=== PATIENT | female | born 2000 | race Caucasian/White ===

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

== ENCOUNTER 2021-02-03 02:16 | Inpatient (IN) | payer MEDICAID ==
[2021-02-03] MEDS ORDERED: Misoprostol 200 MCG Tab PO PRN (03:39)
[2021-02-03] MEDS ORDERED: Sodium Chloride 0.9% 2.5 ML Syringe FLUSH PRN (03:39)
[2021-02-03] MEDS ORDERED: Sodium Chloride 0.9% 10 ML SDV IV PRN (03:39)
[2021-02-03] MEDS ORDERED: Butorphanol 1 MG/ML SDV IVPUSH PRN (03:39)
[2021-02-03] MEDS ORDERED: Methylergonovine 0.2 MG/1 ML Amp IM PRN (03:39)
[2021-02-03] MEDS ORDERED: Nalbuphine 10 MG/1 ML Vial IVPUSH PRN (03:39)
[2021-02-03] MEDS ORDERED: Ondansetron 4 MG/2 ML SDV IVPUSH PRN (03:39)
[2021-02-03] MEDS ORDERED: Carboprost Tromethamine 250 MCG/1 ML Amp IM PRN (03:39)
[2021-02-03] MEDS ORDERED: Lidocaine 1% 50 ML MDV INJECT PRN (03:39)
[2021-02-03] MEDS ORDERED: Tranexamic Acid 1,000 MG in Sodium Chloride 0.9% 100 ML IV PRN (03:39)
[2021-02-03] MEDS ORDERED: Sodium Chloride 0.9% 10 ML Syringe FLUSH PRN (03:39)
[2021-02-03] MEDS ORDERED: Water For Irrigation,Sterile 1,000 ML Container IRR PRN (03:39)
[2021-02-03] MEDS ORDERED: Oxytocin/0.9 % Sodium Chloride 30 UNIT/500 ML BAG IV SCH ×2 (03:45→08:00)
[2021-02-03] MEDS ORDERED: Terbutaline 1 MG/ML SDV SUBCUT PRN (07:58)
[2021-02-03] MEDS: Lactated Ringers 1,000 ML IV SCH ×3 (08:52→13:14)
[2021-02-03] MEDS ORDERED: Ropivacaine HCl/PF 200 ML ONE (11:31)
[2021-02-03] MEDS ORDERED: Bupivacaine 0.25% 10 ML SDV ONE (11:31)
--- NOTE | 2021-02-03 11:55 | PCM.PREANE ---
Preanesthetic Assessment - Anesthesia/Transfusion/Family Hx Anesthesia History: Prior Anesthesia Without Reaction Family History of Anesthesia Reaction: No Transfusion History: No Prior Transfusion(s) - Review of Systems General: No Symptoms Pulmonary: No Symptoms Cardiovascular: No Symptoms Gastrointestinal: No Symptoms Neurological: No Symptoms Other: Reports: None - Physical Assessment NPO Status Date: 02/03/21 NPO Status Time: 00:00 Height: 5 ft 6 in Weight: 247 lb ASA Class: 2 Mental Status: Alert & Oriented x3 Airway Class: Mallampati = 2 Dentition: Reports: Normal Dentition ROM/Head Extension: Full Lungs: Clear to Auscultation, Normal Respiratory Effort Cardiovascular: Regular Rate, Regular Rhythm - Lab Values: Laboratory Last Values WBC 11.27 K/uL (4.0-11.0) H 02/03/21 03:55 RBC 3.25 M/uL (4.30-5.90) L 02/03/21 03:55 Hgb 10.6 g/dL (12.0-16.0) L 02/03/21 03:55 Hct 30.0 % (36.0-46.0) L 02/03/21 03:55 MCV 92.3 fL (80.0-98.0) 02/03/21 03:55 MCH 32.6 pg (27.0-32.0) H 02/03/21 03:55 MCHC 35.3 g/dL (31.0-37.0) 02/03/21 03:55 RDW Std Deviation 42.0 fl (28.0-62.0) 02/03/21 03:55 RDW Coeff of Veronica 13 % (11.0-15.0) 02/03/21 03:55 Plt Count 250 K/uL (150-400) 02/03/21 03:55 MPV 11.20 fL (7.40-12.00) 02/03/21 03:55 SARS-CoV-2 RNA (PETR) NEGATIVE (NEGATIVE) 02/03/21 03:59 Blood Type A POSITIVE 02/03/21 03:55 Antibody Screen NEGATIVE 02/03/21 03:55 - Allergies Allergies/Adverse Reactions: Allergies Allergy/AdvReac Type Severity Reaction Status Date / Time lamotrigine [From Lamictal] Allergy Intermediate Rash Verified 01/01/21 18:32 - Blood Blood Available: Yes Product(s) Available: PRBC - Anesthesia Plan Pre-Op Medication Ordered: None - Acknowledgements Anesthesia Type Planned: Epidural Pt an Appropriate Candidate for the Planned Anesthesia: Yes Alternatives and Risks of Anesthesia Discussed w Pt/Guardian: Yes Pt/Guardian Understands and Agrees with Anesthesia Plan: Yes PreAnesthesia Questionnaire - Past Health History Medical/Surgical History: Denies Medical/Surgical History HEENT History: Reports: Impaired Vision Cardiovascular History: Reports: None Respiratory History: Reports: Asthma Gastrointestinal History: Reports: Cholelithiasis Genitourinary History: Reports: None 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: Musculoskeletal History: Reports: None Neurological History: Reports: None Psychiatric History: Reports: Anxiety, Depression, PTSD Endocrine/Metabolic History: Reports: Obesity/BMI 30+ Hematologic History: Reports: None Immunologic History: Reports: None Oncologic (Cancer) History: Reports: None Dermatologic History: Reports: None - Infectious Disease History Infectious Disease History: Reports: None - Past Surgical History HEENT Surgical History: Reports: Adenoidectomy, Oral Surgery, Tonsillectomy Respiratory Surgical History: Reports: None GI Surgical History: Reports: None Endocrine Surgical History: Reports: None - SUBSTANCE USE Tobacco Use Status *Q: Former Tobacco User Tobacco Use Within Last Twelve Months: Cigarettes Recreational Drug Use History: Yes Recreational Drug Type: Reports: Marijuana/Hashish Recreational Drug Last Use: 09/2020 - HOME MEDS Home Medications: Home Meds . [No Known Home Meds] 01/01/21 [History] - CURRENT (IN HOUSE) MEDS Current Meds: Current Medications Butorphanol Tartrate (Butorphanol 1 Mg/Ml Sdv) 1 mg IVPUSH Q1H PRN PRN Reason: Pain (severe 7-10) Last Admin: 02/03/21 06:35 Dose: 1 mg Documented by: Carboprost Tromethamine (Carboprost Tromethamine 250 Mcg/1 Ml Amp) 250 mcg IM ASDIRECTED PRN PRN Reason: Post Hemorrhage Lactated Ringer's (Ringers, Lactated) 1,000 mls @ 150 mls/hr IV ASDIRECTED DAREN Last Infusion: 02/03/21 11:51 Dose: 150 mls/hr Documented by: Oxytocin/Sodium Chloride (Oxytocin 30 Unit/500 Ml-Ns) 30 unit in 500 mls @ 999 mls/hr IV TITRATE DAREN Tranexamic Acid 1,000 mg/ (Sodium Chloride) 110 mls @ 660 mls/hr IV ONETIME PRN PRN Reason: Bleeding Oxytocin/Sodium Chloride (Oxytocin 30 Unit/500 Ml-Ns) 30 unit in 500 mls @ 2 mls/hr IV TITRATE DAREN; Protocol Last Titration: 02/03/21 11:52 Dose: 8 munits/min, 8 mls/hr Documented by: Lidocaine HCl (Lidocaine 1% 50 Ml Mdv) 50 ml INJECT ONETIME PRN PRN Reason: Laceration repair Methylergonovine Maleate (Methylergonovine 0.2 Mg/1 Ml Amp) 0.2 mg IM ASDIRECTED PRN PRN Reason: Post Hemorrhage Misoprostol (Misoprostol 200 Mcg Tab) 200 mcg PO ONETIME PRN PRN Reason: Post Hemorrhage Nalbuphine HCl (Nalbuphine 10 Mg/1 Ml Vial) 10 mg IVPUSH Q1H PRN PRN Reason: Pain (severe 7-10) Ondansetron HCl (Ondansetron 4 Mg/2 Ml Sdv) 4 mg IVPUSH Q6H PRN PRN Reason: Nausea/Vomiting Sodium Chloride (Sodium Chloride 0.9% 10 Ml Syringe) 10 ml FLUSH ASDIRECTED PRN PRN Reason: Keep Vein Open Sodium Chloride (Sodium Chloride 0.9% 2.5 Ml Syringe) 2.5 ml FLUSH ASDIRECTED PRN PRN Reason: Keep Vein Open Sodium Chloride (Sodium Chloride 0.9% 10 Ml Sdv) 10 ml IV ASDIRECTED PRN PRN Reason: IV Use Sterile Water (Water For Irrigation,Sterile 1,000 Ml Container) 1,000 ml IRR ASDIRECTED PRN PRN Reason: delivery Terbutaline Sulfate (Terbutaline 1 Mg/Ml Sdv) 0.25 mg SUBCUT ASDIRECTED PRN PRN Reason: Tacysystole Discontinued Medications Bupivacaine HCl (Bupivacaine 0.25% 10 Ml Sdv) Confirm Administered Dose 10 ml .ROUTE .STK-MED ONE Stop: 02/03/21 11:32 Ropivacaine (Naropin 0.2%) Confirm Administered Dose 200 mls @ as directed .ROUTE .STK-MED ONE Stop: 02/03/21 11:32 - Pre-Procedure Checklist Attending Provider Aware: Yes Chart Reviewed: Yes Consent Signed: Yes Labs Reviewed: Yes VS/FHR Reviewed: Yes Patient Identification Confirmation Method: Reports: Verbal Patient Pt an Appropriate Candidate for the Planned Anesthesia: Yes Alternatives and Risks of Anesthesia Discussed w Pt/Guardian: Yes - Procedure Procedure Start Date: 02/03/21 Procedure Start Time: 11:[address]: Reports: Blood Pressure, Heart Rate, SPO2 Functional IV: Yes Safety Measures: Reports: Patient Identified, Procedure Verified, Site Verified, Procedure Time Out Patient Position: Reports: Sitting Prep: Reports: Betadine x3 Local Anesthetic: Reports: Intradermal Wheal w Lidocaine 1% Regional Placement Level: Reports: L3-4 Needle: Reports: 17 g Touhy Approach: Reports: Midline Technique: Reports: JUSTIN Plastic Syringe Parasthesia: Reports: None Fluid Obtained: Reports: None Test Dose Medication: Reports: Lidocaine 1.5% w Epinephrine 1:200,000 Test Dose Response: Reports: Negative Loading Dose Time: 11:40 Loading Dose Medication: bupivicaine 0.25 10 cc Loading Dose Patient Position: sitting Continuous Infusion Start Time: 11:45 Continuous Infusion Medication: ropivicaine 0.2% Continuous Infusion Rate: 16 Continuous Infusion PCS Bolus Option: 4 Continuous Infusion Lockout Dose (cc/hr): 32 Patient Position Post Placement: Reports: Supline/SUHAIL VS and FHR Monitored in Unit Post Placement: Yes Procedure End Date: 02/03/21 Procedure End Time: 12:30
--- NOTE | 2021-02-03 13:52 | PCM.LDHP ---
L&D History of Present Illness - General Date of Service: 02/03/21 Admit Problem/Dx: Patient Status Order with Admit Dx/Problem 02/03/21 02:20 Patient Status [ADT] Routine 02/03/21 03:39 Patient Status [ADT] Routine Admission Diagnosis/Problem Admission Diagnosis/Problem Source of Information: Patient History Limitations: Reports: No Limitations - History of Present Illness Introduction:: 20yo at 37w6d GA presented with contractions. Denies vaginal bleeding or LOF. Reports good FM. c/b used of THC earlier in and smoking cigarette, but subsequent UDSs negative. Patient has also been on Lexapro. care otherwise uncomplicated. Pain Score: 6 - Related Data Allergies/Adverse Reactions: Allergies Allergy/AdvReac Type Severity Reaction Status Date / Time lamotrigine [From Lamictal] Allergy Intermediate Rash Verified 01/01/21 18:32 Home Medications: Home Meds . [No Known Home Meds] 01/01/21 [History] Past Medical History - Past Health History Medical/Surgical History: Denies Medical/Surgical History HEENT History: Reports: Impaired Vision Cardiovascular History: Reports: None Respiratory History: Reports: Asthma Gastrointestinal History: Reports: Cholelithiasis Genitourinary History: Reports: None APPLICATION SUPPORT LEAD History: Reports: Musculoskeletal History: Reports: None Neurological History: Reports: None Psychiatric History: Reports: Anxiety, Depression, PTSD Endocrine/Metabolic History: Reports: Obesity/BMI 30+ Hematologic History: Reports: None Immunologic History: Reports: None Oncologic (Cancer) History: Reports: None Dermatologic History: Reports: None - Infectious Disease History Infectious Disease History: Reports: None - Past Surgical History HEENT Surgical History: Reports: Adenoidectomy, Oral Surgery, Tonsillectomy Respiratory Surgical History: Reports: None GI Surgical History: Reports: None Endocrine Surgical History: Reports: None Social & Family History - Family History Family Medical History: No Pertinent Family History OBGYN: Reports: Psychiatric: Reports: Anxiety, Bipolar, Depression Other Endocrine/Metabolic Family History: thyroid disease - Tobacco Use Tobacco Use Status *Q: Former Tobacco User Used Tobacco, but Quit: Yes Month/Year Tobacco Last Used: 06/2020 - Caffeine Use Caffeine Use: Reports: Soda Other Caffeine Use: occasional - Recreational Drug Use Recreational Drug Use: Yes Drug Use in Last 12 Months: Yes Recreational Drug Type: Reports: Marijuana/Hashish Recreational Drug Use Frequency: Not Used In Over 4 Months Recreational Drug Last Use: 09/2020 - Living Situation & Occupation Living situation: Reports: Single, with Significant Other (Boyfriend) Occupation: Unemployed H&P Review of Systems - Review of Systems: Review Of Systems: See Below General: Reports: No Symptoms HEENT: Reports: No Symptoms Pulmonary: Reports: No Symptoms Cardiovascular: Reports: No Symptoms Gastrointestinal: Reports: No Symptoms Genitourinary: Reports: No Symptoms Musculoskeletal: Reports: No Symptoms Skin: Reports: No Symptoms Psychiatric: Reports: No Symptoms Neurological: Reports: No Symptoms Hematologic/Lymphatic: Reports: No Symptoms Immunologic: Reports: No Symptoms L&D Exam - Exam Exam: See Below - Vital Signs Weight: 112.037 kg - OB Specific Contraction Intensity: Moderate to Strong - Goyal Score Goyal Score Cervix Position: Midposition Goyal Score Consistency: Medium Goyal Score Effacement: 51-70% Goyal Score Dilation: > 5 cm Goyal Score 's Station: -2 Goyal Score Total: 8 - Exam General: Alert, Oriented Lungs: Normal Respiratory Effort Cardiovascular: Regular Rate GI/Abdominal Exam: Soft, Non-Tender Extremities: Normal Inspection Psychiatric: Alert, Normal Affect - Patient Data Lab Results Last 24 hrs: Laboratory Results - last 24 hr 02/03/21 02/03/21 02/03/21 Range/Units 03:55 03:55 03:59 WBC 11.27 H (4.0-11.0) K/uL RBC 3.25 L (4.30-5.90) M/uL Hgb 10.6 L (12.0-16.0) g/dL Hct 30.0 L (36.0-46.0) % MCV 92.3 (80.0-98.0) fL MCH 32.6 H (27.0-32.0) pg MCHC 35.3 (31.0-37.0) g/dL RDW Std Deviation 42.0 (28.0-62.0) fl RDW Coeff of Veronica 13 (11.0-15.0) % Plt Count 250 (150-400) K/uL MPV 11.20 (7.40-12.00) fL SARS-CoV-2 RNA (PETR) NEGATIVE (NEGATIVE) Blood Type A POSITIVE Antibody Screen NEGATIVE Result Diagrams: 02/03/21 03:55 - Problem List (1) Active labor at term SNOMED Code(s): 85958239 ICD Code: [id number] - Status: Acute Current Visit: Yes Problem List Initiated/Reviewed/Updated: Yes Orders Last 24hrs: Active Orders 24 hr Category Date Time Status Patient Status [ADT] Routine ADT 02/03/21 03:39 Active Bedrest Bathroom Privileges [RC] ASDIRECTED Care 02/03/21 07:58 Active Communication Order [RC] ASDIRECTED Care 02/03/21 07:58 Active Communication Order [RC] ASDIRECTED Care 02/03/21 07:58 Active Heart Tones [RC] CONTINUOUS Care 02/03/21 03:39 Active Non Stress Test [RC] PER UNIT ROUTINE Care 02/03/21 02:34 Active May Shower [RC] ASDIRECTED Care 02/03/21 03:39 Active Notify Provider [RC] PRN Care 02/03/21 03:39 Active Notify Provider [RC] PRN Care 02/03/21 07:58 Active Oxygen Therapy [RC] ASDIRECTED Care 02/03/21 07:58 Active Up ad Jane [RC] ASDIRECTED Care 02/03/21 02:34 Active Vaginal Exam [RC] Click to Edit Care 02/03/21 02:34 Active Vaginal Exam [RC] PRN Care 02/03/21 07:58 Active Vital Signs [RC] PER UNIT ROUTINE Care 02/03/21 02:34 Active Vital Signs [RC] PER UNIT ROUTINE Care 02/03/21 07:58 Active Regular Diet [DIET] Diet 02/03/21 Breakfast Active RPR (SYPHILIS SERO) W/ RFLX [REF] Routine Lab 02/03/21 03:55 Received Butorphanol [Stadol] Med 02/03/21 03:39 Active 1 mg IVPUSH Q1H PRN Carboprost Tromethamine [Hemabate DS] Med 02/03/21 03:39 Active 250 mcg IM ASDIRECTED PRN Lactated Ringers [Ringers, Lactated] 1,000 ml Med 02/03/21 03:45 Active IV ASDIRECTED Lidocaine 1% [Xylocaine 1%] Med 02/03/21 03:39 Active 50 ml INJECT ONETIME PRN Methylergonovine [Methergine] Med 02/03/21 03:39 Active 0.2 mg IM ASDIRECTED PRN Nalbuphine [Nubain] Med 02/03/21 03:39 Active 10 mg IVPUSH Q1H PRN Ondansetron [Zofran] Med 02/03/21 03:39 Active 4 mg IVPUSH Q6H PRN Oxytocin/0.9 % Sodium Chloride [Oxytocin 30 Unit/500 ML Med 02/03/21 03:45 Active -NS] 30 unit in 500 ml IV TITRATE Oxytocin/0.9 % Sodium Chloride [Oxytocin 30 Unit/500 ML Med 02/03/21 08:00 Active -NS] 30 unit in 500 ml IV TITRATE Sodium Chloride 0.9% [Normal Saline] Med 02/03/21 03:39 Active 10 ml IV ASDIRECTED PRN Sodium Chloride 0.9% [Saline Flush] Med 02/03/21 03:39 Active 10 ml FLUSH ASDIRECTED PRN Sodium Chloride 0.9% [Saline Flush] Med 02/03/21 03:39 Active 2.5 ml FLUSH ASDIRECTED PRN Terbutaline [Brethine] Med 02/03/21 07:58 Active 0.25 mg SUBCUT ASDIRECTED PRN Tranexamic Acid [Cyklokapron] 1,000 mg Med 02/03/21 03:39 Active Sodium Chloride 0.9% [Normal Saline] 100 ml IV ONETIME Water For Irrigation,Sterile [Sterile Water for Med 02/03/21 03:39 Active Irrigation] 1,000 ml IRR ASDIRECTED PRN miSOPROStoL [Cytotec] Med 02/03/21 03:39 Active 200 mcg PO ONETIME PRN Scalp Electrode [WOMSER] Per Unit Routine Oth 02/03/21 03:39 Ordered Peripheral IV Insertion Adult [OM.PC] Routine Oth 02/03/21 03:39 Ordered Resuscitation Status Routine Resus Stat 02/03/21 02:34 Ordered Medication Orders Butorphanol Tartrate (Butorphanol 1 Mg/Ml Sdv) 1 mg IVPUSH Q1H PRN PRN Reason: Pain (severe 7-10) Last Admin: 02/03/21 06:35 Dose: 1 mg Documented by: [id number] Carboprost Tromethamine (Carboprost Tromethamine 250 Mcg/1 Ml Amp) 250 mcg IM ASDIRECTED PRN PRN Reason: Post Hemorrhage Lactated Ringer's (Ringers, Lactated) 1,000 mls @ 150 mls/hr IV ASDIRECTED DAREN Last Admin: 02/03/21 13:14 Dose: 150 mls/hr Documented by: Infusion: 02/03/21 13:14 Dose: 150 mls/hr Documented by: Infusion: 02/03/21 11:51 Dose: 150 mls/hr Documented by: Infusion: 02/03/21 11:10 Dose: 999 mls/hr Documented by: Admin: 02/03/21 10:43 Dose: 150 mls/hr Documented by: Infusion: 02/03/21 10:43 Dose: 150 mls/hr Documented by: Admin: 02/03/21 08:52 Dose: 150 mls/hr Documented by: RAMY Oxytocin/Sodium Chloride (Oxytocin 30 Unit/500 Ml-Ns) 30 unit in 500 mls @ 999 mls/hr IV TITRATE DAREN Tranexamic Acid 1,000 mg/ (Sodium Chloride) 110 mls @ 660 mls/hr IV ONETIME PRN PRN Reason: Bleeding Oxytocin/Sodium Chloride (Oxytocin 30 Unit/500 Ml-Ns) 30 unit in 500 mls @ 2 mls/hr IV TITRATE DAREN; Protocol Last Titration: 02/03/21 11:52 Dose: 8 munits/min, 8 mls/hr Documented by: Titration: 02/03/21 10:30 Dose: 6 munits/min, 6 mls/hr Documented by: Titration: 02/03/21 09:32 Dose: 4 munits/min, 4 mls/hr Documented by: Admin: 02/03/21 08:53 Dose: 2 munits/min, 2 mls/hr Documented by: RAMY Lidocaine HCl (Lidocaine 1% 50 Ml Mdv) 50 ml INJECT ONETIME PRN PRN Reason: Laceration repair Methylergonovine Maleate (Methylergonovine 0.2 Mg/1 Ml Amp) 0.2 mg IM ASDIRECTED PRN PRN Reason: Post Hemorrhage Misoprostol (Misoprostol 200 Mcg Tab) 200 mcg PO ONETIME PRN PRN Reason: Post Hemorrhage Nalbuphine HCl (Nalbuphine 10 Mg/1 Ml Vial) 10 mg IVPUSH Q1H PRN PRN Reason: Pain (severe 7-10) Ondansetron HCl (Ondansetron 4 Mg/2 Ml Sdv) 4 mg IVPUSH Q6H PRN PRN Reason: Nausea/Vomiting Last Admin: 02/03/21 12:10 Dose: 4 mg Documented by: RAMY Sodium Chloride (Sodium Chloride 0.9% 10 Ml Syringe) 10 ml FLUSH ASDIRECTED PRN PRN Reason: Keep Vein Open Sodium Chloride (Sodium Chloride 0.9% 2.5 Ml Syringe) 2.5 ml FLUSH ASDIRECTED P RN PRN Reason: Keep Vein Open Sodium Chloride (Sodium Chloride 0.9% 10 Ml Sdv) 10 ml IV ASDIRECTED PRN PRN Reason: IV Use Sterile Water (Water For Irrigation,Sterile 1,000 Ml Container) 1,000 ml IRR ASDIRECTED PRN PRN Reason: delivery Terbutaline Sulfate (Terbutaline 1 Mg/Ml Sdv) 0.25 mg SUBCUT ASDIRECTED PRN PRN Reason: Tacysystole Assessment/Plan Comment:: 20yo at 37w6d GA here in active labor. Goyal score of 8 and cat 1 tracing. Patient was expectantly managed for 5hrs and contractions spaced out, with slowdown of dilatation at 5cm. Pitocin was started, and patient progressed to 6cm, requested the epidural, and shortly after AROM was performed: clear moderate fluids. SVE 680/-2 Continue augmentation with pitocin.
[2021-02-03] MEDS ORDERED: Acetaminophen 500 MG Tab PO PRN (17:27)
[2021-02-03] MEDS ORDERED: Lanolin 100% Cream 7 GM Tube TOP PRN (17:27)
[2021-02-03] MEDS ORDERED: Bisacodyl 10 MG Supp RECTAL PRN (17:27)
[2021-02-03] MEDS ORDERED: Docusate Sodium 100 MG Cap PO PRN (17:27)
[2021-02-03] MEDS ORDERED: Ibuprofen 400 MG Tab PO PRN (17:27)
--- NOTE | 2021-02-03 17:34 | PCM.DEL ---
L & D Note - General Info Date of Service: 02/03/21 Mother's Due Date: 02/18/21 - Delivery Note Labor: Spontaneous, Augmented by Oxytocin Delivery Outcome: Livebirth Infant Delivery Method: Spontaneous Vaginal Delivery-Single Presentation: Vertex Nuchal Cord: Present, Reduced Anesthesia Type: Epidural Local Anesthetic Volume: Other Amniotic Fluid Description: Clear Episiotomy Type: None Laceration: 1st Degree Suture type: Vicryl Suture size: 4-0 Placenta: Intact, Spontaneous Cord: 3 Vessels Estimated Blood Loss: 350 Resuscitation Needed: No Score 1 min: 1 Score 5 min: 7 Delivery Comments (Free Text/Narrative):: 20yo G1 now P1 s/p uncomplicated 37w6d GA. care c/b smoking MJ earlier in and smoking cigarettes. Normal spontaneous vaginal delivery of live male or male , over an intact perineum with epidural anesthesia. No Meconium; Presence of tight nuchal cord x1 and body cord. Baby did not breathe spontaneously, after a few seconds drying and rubbing. Cord was immediately clamped and cut, and additional OB staff, RT and revenue cycle analyst were immediately called for resuscitation which was successful. Spontaneous delivery of placenta with 3-vessel cord. Two 1st degrees lacerations, pawan-urethral and perineal, repaired with 4-0 Vicryl suture, in running stitch fashion. Delivery details: Male infant Weight: 7'11" : 1/7 EBL 350cc - General Info Date of Service: 02/03/21 Admission Dx/Problem (Free Text): Patient Status Order with Admit Dx/Problem 02/03/21 02:20 Patient Status [ADT] Routine 02/03/21 03:39 Patient Status [ADT] Routine Admission Diagnosis/Problem Admission Diagnosis/Problem Functional Status: Reports: Pain Controlled - Review of Systems General: Reports: No Symptoms HEENT: Reports: No Symptoms Pulmonary: Reports: No Symptoms Cardiovascular: Reports: No Symptoms Gastrointestinal: Reports: No Symptoms Genitourinary: Reports: No Symptoms Musculoskeletal: Reports: No Symptoms Skin: Reports: No Symptoms Neurological: Reports: No Symptoms Psychiatric: Reports: No Symptoms - Patient Data Weight - Most Recent: 112.037 kg I&O - Last 24 Hours: Intake & Output 02/03/21 02/03/21 02/03/21 06:59 14:59 22:59 Intake Total 1000 Balance 1000 Lab Results Last 24 Hours: Laboratory Results - last 24 hr 02/03/21 02/03/21 02/03/21 Range/Units 03:55 03:55 03:59 WBC 11.27 H (4.0-11.0) K/uL RBC 3.25 L (4.30-5.90) M/uL Hgb 10.6 L (12.0-16.0) g/dL Hct 30.0 L (36.0-46.0) % MCV 92.3 (80.0-98.0) fL MCH 32.6 H (27.0-32.0) pg MCHC 35.3 (31.0-37.0) g/dL RDW Std Deviation 42.0 (28.0-62.0) fl RDW Coeff of Veronica 13 (11.0-15.0) % Plt Count 250 (150-400) K/uL MPV 11.20 (7.40-12.00) fL SARS-CoV-2 RNA (PETR) NEGATIVE (NEGATIVE) Blood Type A POSITIVE Antibody Screen NEGATIVE Med Orders - Current: Current Medications Butorphanol Tartrate (Butorphanol 1 Mg/Ml Sdv) 1 mg IVPUSH Q1H PRN PRN Reason: Pain (severe 7-10) Last Admin: 02/03/21 06:35 Dose: 1 mg Documented by: Carboprost Tromethamine (Carboprost Tromethamine 250 Mcg/1 Ml Amp) 250 mcg IM ASDIRECTED PRN PRN Reason: Post Hemorrhage Lactated Ringer's (Ringers, Lactated) 1,000 mls @ 150 mls/hr IV ASDIRECTED DAREN Last Admin: 02/03/21 13:14 Dose: 150 mls/hr Documented by: Oxytocin/Sodium Chloride (Oxytocin 30 Unit/500 Ml-Ns) 30 unit in 500 mls @ 999 mls/hr IV TITRATE DAREN Tranexamic Acid 1,000 mg/ (Sodium Chloride) 110 mls @ 660 mls/hr IV ONETIME PRN PRN Reason: Bleeding Oxytocin/Sodium Chloride (Oxytocin 30 Unit/500 Ml-Ns) 30 unit in 500 mls @ 2 mls/hr IV TITRATE DAREN; Protocol Last Titration: 02/03/21 11:52 Dose: 8 munits/min, 8 mls/hr Documented by: Lidocaine HCl (Lidocaine 1% 50 Ml Mdv) 50 ml INJECT ONETIME PRN PRN Reason: Laceration repair Methylergonovine Maleate (Methylergonovine 0.2 Mg/1 Ml Amp) 0.2 mg IM ASDIRECTED PRN PRN Reason: Post Hemorrhage Misoprostol (Misoprostol 200 Mcg Tab) 200 mcg PO ONETIME PRN PRN Reason: Post Hemorrhage Nalbuphine HCl (Nalbuphine 10 Mg/1 Ml Vial) 10 mg IVPUSH Q1H PRN PRN Reason: Pain (severe 7-10) Ondansetron HCl (Ondansetron 4 Mg/2 Ml Sdv) 4 mg IVPUSH Q6H PRN PRN Reason: Nausea/Vomiting Last Admin: 02/03/21 12:10 Dose: 4 mg Documented by: Sodium Chloride (Sodium Chloride 0.9% 10 Ml Syringe) 10 ml FLUSH ASDIRECTED PRN PRN Reason: Keep Vein Open Sodium Chloride (Sodium Chloride 0.9% 2.5 Ml Syringe) 2.5 ml FLUSH ASDIRECTED PRN PRN Reason: Keep Vein Open Sodium Chloride (Sodium Chloride 0.9% 10 Ml Sdv) 10 ml IV ASDIRECTED PRN PRN Reason: IV Use Sterile Water (Water For Irrigation,Sterile 1,000 Ml Container) 1,000 ml IRR ASDIRECTED PRN PRN Reason: delivery Terbutaline Sulfate (Terbutaline 1 Mg/Ml Sdv) 0.25 mg SUBCUT ASDIRECTED PRN PRN Reason: Tacysystole Discontinued Medications Bupivacaine HCl (Bupivacaine 0.25% 10 Ml Sdv) Confirm Administered Dose 10 ml .ROUTE .STK-MED ONE Stop: 02/03/21 11:32 Ropivacaine (Naropin 0.2%) Confirm Administered Dose 200 mls @ as directed .ROUTE .STK-MED ONE Stop: 02/03/21 11:32 - Exam Urinary Catheter Total Time: 0Days 1Hours General: Alert, Oriented Lungs: Normal Respiratory Effort GI/Abdominal Exam: Soft, Non-Tender Extremities: Normal Inspection Psy/Mental Status: Alert, Normal Affect, Normal Mood - Problem List & Annotations (1) Active labor at term SNOMED Code(s): 40039659 Code(s): RSN7746 - Status: Acute Current Visit: Yes (2) Term delivered SNOMED Code(s): 36009937, 954218435 Code(s): O80 - ENCOUNTER FOR FULL-TERM UNCOMPLICATED DELIVERY Status: Acute Current Visit: Yes - Problem List Review Problem List Initiated/Reviewed/Updated: Yes - My Orders Last 24 Hours: My Active Orders 02/03/21 02:34 Non Stress Test [RC] PER UNIT ROUTINE Up ad Jane [RC] ASDIRECTED Vaginal Exam [RC] Click to Edit Vital Signs [RC] PER UNIT ROUTINE Resuscitation Status Routine 02/03/21 03:39 Heart Tones [RC] CONTINUOUS May Shower [RC] ASDIRECTED Notify Provider [RC] PRN Butorphanol [Stadol] 1 mg IVPUSH Q1H PRN Carboprost Tromethamine [Hemabate DS] 250 mcg IM ASDIRECTED PRN Lidocaine 1% [Xylocaine 1%] 50 ml INJECT ONETIME PRN Methylergonovine [Methergine] 0.2 mg IM ASDIRECTED PRN Nalbuphine [Nubain] 10 mg IVPUSH Q1H PRN Ondansetron [Zofran] 4 mg IVPUSH Q6H PRN Sodium Chloride 0.9% [Normal Saline] 10 ml IV ASDIRECTED PRN Sodium Chloride 0.9% [Saline Flush] 10 ml FLUSH ASDIRECTED PRN Sodium Chloride 0.9% [Saline Flush] 2.5 ml FLUSH ASDIRECTED PRN Tranexamic Acid [Cyklokapron] 1,000 mg Sodium Chloride 0.9% [Normal Saline] 100 ml IV ONETIME Water For Irrigation,Sterile [Sterile Water for Irrigation] 1,000 ml IRR DIRECTED PRN miSOPROStoL [Cytotec] 200 mcg PO ONETIME PRN Scalp Electrode [WOMSER] Per Unit Routine Peripheral IV Insertion Adult [OM.PC] Routine 02/03/21 03:45 Lactated Ringers [Ringers, Lactated] 1,000 ml IV ASDIRECTED Oxytocin/0.9 % Sodium Chloride [Oxytocin 30 Unit/500 ML-NS] 30 unit in 500 ml IV TITRATE 02/03/21 03:55 RPR (SYPHILIS SERO) W/ RFLX [REF] Routine 02/03/21 Breakfast Regular Diet [DIET] 02/03/21 07:58 Bedrest Bathroom Privileges [RC] ASDIRECTED Communication Order [RC] ASDIRECTED Communication Order [RC] ASDIRECTED Notify Provider [RC] PRN Oxygen Therapy [RC] ASDIRECTED Vaginal Exam [RC] PRN Vital Signs [RC] PER UNIT ROUTINE Terbutaline [Brethine] 0.25 mg SUBCUT ASDIRECTED PRN 02/03/21 08:00 Oxytocin/0.9 % Sodium Chloride [Oxytocin 30 Unit/500 ML-NS] 30 unit in 500 ml IV TITRATE 02/03/21 17:27 Patient Status [ADT] Routine May Shower [RC] ASDIRECTED Up ad Jane [RC] ASDIRECTED Vital Signs [RC] PER UNIT ROUTINE Acetaminophen [Tylenol Extra Strength] 1,000 mg PO Q4H PRN Acetaminophen [Tylenol Extra Strength] 500 mg PO Q4H PRN Benzocaine/Menthol [Dermoplast Pain Relief 20%-0.5% [place]] 78 gm TOP ASDIRECTED PRN Docusate Sodium [Colace] 100 mg PO Q12H PRN Ibuprofen [Motrin] 400 mg PO Q4H PRN Ibuprofen [Motrin] 800 mg PO Q6H PRN Lanolin [Lansinoh HPA] See Dose Instructions TOP ASDIRECTED PRN bisacodyL [Dulcolax] 10 mg RECTAL ONETIME PRN witch Jaswinder [Tucks] 1 pad TOP ASDIRECTED PRN Assess Lochia [WOMSER] Per Unit Routine Assess Uterine Involution [WOMSER] Per Unit Routine Peripheral IV Discontinue [OM.PC] Routine 02/04/21 05:11 HEMOGLOBIN/HEMATOCRIT,HH [HEME] Timed - Plan Plan:: 20yo G1 now P1 s/p uncomplicated 37w6d GA. Mom and baby are doing well, baby by mother's side. Routine care.
[2021-02-03] MEDS: Ibuprofen 800 MG Tab PO PRN (19:49)
[2021-02-03] MEDS: Witch Hazel Medicated Pads 40/Jar TOP PRN (19:49)
[2021-02-03] MEDS: Benzocaine/Menthol 20%-0.5% Spray 78 GM Cannister TOP PRN (19:50)
[2021-02-03] MEDS: Acetaminophen 500 MG Tab PO PRN (21:48)
[2021-02-04] MEDS: Ibuprofen 800 MG Tab PO PRN ×3 (05:39→18:22)
[2021-02-04] MEDS: Acetaminophen 500 MG Tab PO PRN ×2 (08:35→16:23)
--- NOTE | 2021-02-04 12:21 | PCM.DCSUM1 ---
Discharge Summary - Hospital Course Free Text/Narrative:: 20yo G1 now P1 s/p uncomplicated 37w6d GA. care c/b smoking MJ earlier in and smoking cigarettes. Patient presented in early labor and progressed well. She was AROM during the course of the labor, with clear fluid. Delivery was c/b tight nuchal cord, and baby having difficulty catching his 1st breaths and required resuscitation and suction. Baby was care for by the pediatric staff and RT, who found baby to have successfully transitioned after a few mns of resuscitation. Baby was then brought to Mom and both were doing well. Diagnosis: Stroke: No - Discharge Data Discharge Date: 02/04/21 Discharge Disposition: Home, Self-Care 01 Condition: Good - Referral to Home Health Primary Care Physician: María Galvez NP - Discharge Diagnosis/Problem(s) (1) Active labor at term SNOMED Code(s): 75081804 ICD Code: [id number] - Status: Acute Current Visit: Yes (2) Term delivered SNOMED Code(s): 10308150, 924277520 ICD Code: O80 - ENCOUNTER FOR FULL-TERM UNCOMPLICATED DELIVERY Status: Acute Current Visit: Yes - Patient Instructions Diet: Usual Diet as Tolerated - Discharge Plan *PRESCRIPTION DRUG MONITORING PROGRAM REVIEWED*: Not Applicable *COPY OF PRESCRIPTION DRUG MONITORING REPORT IN PATIENT HARISH: Not Applicable Home Medications: Home Meds . [No Known Home Meds] 01/01/21 [History] - Discharge Summary/Plan Comment DC Time >30 min.: Yes - General Info Date of Service: 02/04/21 Admission Dx/Problem (Free Text: Patient Status Order with Admit Dx/Problem 02/03/21 02:20 Patient Status [ADT] Routine 02/03/21 03:39 Patient Status [ADT] Routine Admission Diagnosis/Problem Admission Diagnosis/Problem Subjective Update: Baby in the room with Mom, both doing well. Mom reports minimal bleeding. Denies SOB, dizziness, palpitations. Tolerating PO Functional Status: Reports: Pain Controlled - Review of Systems General: Reports: No Symptoms HEENT: Reports: No Symptoms Pulmonary: Reports: No Symptoms Cardiovascular: Reports: No Symptoms Gastrointestinal: Reports: No Symptoms Genitourinary: Reports: No Symptoms Musculoskeletal: Reports: No Symptoms Skin: Reports: No Symptoms Neurological: Reports: No Symptoms Psychiatric: Reports: No Symptoms - Patient Data Vitals - Most Recent: Last Vital Signs Temp 96.8 F L 02/04/21 08:00 Pulse 80 02/04/21 08:00 Resp 18 02/04/21 08:00 BP 108/52 L 02/04/21 08:00 Pulse Ox 98 02/04/21 08:00 Weight - Most Recent: 112.037 kg I&O - Last 24 hours: Intake & Output 02/03/21 02/04/21 02/04/21 22:59 06:59 14:59 Intake Total 1044 Balance 1044 Lab Results - Last 24 hrs: Laboratory Results - last 24 hr 02/04/21 Range/Units 04:55 Hgb 9.3 L (12.0-16.0) g/dL Hct 26.9 L (36.0-46.0) % Med Orders - Current: Current Medications Acetaminophen (Acetaminophen 500 Mg Tab) 500 mg PO Q4H PRN PRN Reason: Pain (mild 1-3) Acetaminophen (Acetaminophen 500 Mg Tab) 1,000 mg PO Q4H PRN PRN Reason: Pain (mild 1-3) Last Admin: 02/04/21 08:35 Dose: 1,000 mg Documented by: Benzocaine/Menthol (Benzocaine/Menthol 20%-0.5% Amado 78 Gm Cannister) 78 gm TOP ASDIRECTED PRN PRN Reason: Perineal Comfort Measure Last Admin: 02/03/21 19:50 Dose: 1 can Documented by: Bisacodyl (Bisacodyl 10 Mg Supp) 10 mg RECTAL ONETIME PRN PRN Reason: Constipation Butorphanol Tartrate (Butorphanol 1 Mg/Ml Sdv) 1 mg IVPUSH Q1H PRN PRN Reason: Pain (severe 7-10) Last Admin: 02/03/21 06:35 Dose: 1 mg Documented by: Carboprost Tromethamine (Carboprost Tromethamine 250 Mcg/1 Ml Amp) 250 mcg IM ASDIRECTED PRN PRN Reason: Post Hemorrhage Docusate Sodium (Docusate Sodium 100 Mg Cap) 100 mg PO Q12H PRN PRN Reason: Constipation Last Admin: 02/04/21 08:36 Dose: 100 mg Documented by: Emollient Ointment (Lanolin 100% Cream 7 Gm Tube) 0 gm TOP ASDIRECTED PRN PRN Reason: Sore Nipples Lactated Ringer's (Ringers, Lactated) 1,000 mls @ 150 mls/hr IV ASDIRECTED DAREN Last Admin: 02/03/21 13:14 Dose: 150 mls/hr Documented by: Oxytocin/Sodium Chloride (Oxytocin 30 Unit/500 Ml-Ns) 30 unit in 500 mls @ 999 mls/hr IV TITRATE DAREN Tranexamic Acid 1,000 mg/ (Sodium Chloride) 110 mls @ 660 mls/hr IV ONETIME PRN PRN Reason: Bleeding Oxytocin/Sodium Chloride (Oxytocin 30 Unit/500 Ml-Ns) 30 unit in 500 mls @ 2 mls/hr IV TITRATE DAREN; Protocol Last Titration: 02/03/21 16:31 Dose: 999 munits/min, 999 mls/hr Documented by: Ibuprofen (Ibuprofen 400 Mg Tab) 400 mg PO Q4H PRN PRN Reason: Pain (mild 1-3) Ibuprofen (Ibuprofen 800 Mg Tab) 800 mg PO Q6H PRN PRN Reason: Pain (mild 1-3) Last Admin: 02/04/21 12:04 Dose: 800 mg Documented by: Lidocaine HCl (Lidocaine 1% 50 Ml Mdv) 50 ml INJECT ONETIME PRN PRN Reason: Laceration repair Methylergonovine Maleate (Methylergonovine 0.2 Mg/1 Ml Amp) 0.2 mg IM ASDIRECTED PRN PRN Reason: Post Hemorrhage Misoprostol (Misoprostol 200 Mcg Tab) 200 mcg PO ONETIME PRN PRN Reason: Post Hemorrhage Nalbuphine HCl (Nalbuphine 10 Mg/1 Ml Vial) 10 mg IVPUSH Q1H PRN PRN Reason: Pain (severe 7-10) Ondansetron HCl (Ondansetron 4 Mg/2 Ml Sdv) 4 mg IVPUSH Q6H PRN PRN Reason: Nausea/Vomiting Last Admin: 02/03/21 12:10 Dose: 4 mg Documented by: Sodium Chloride (Sodium Chloride 0.9% 10 Ml Syringe) 10 ml FLUSH ASDIRECTED PRN PRN Reason: Keep Vein Open Sodium Chloride (Sodium Chloride 0.9% 2.5 Ml Syringe) 2.5 ml FLUSH ASDIRECTED PRN PRN Reason: Keep Vein Open Sodium Chloride (Sodium Chloride 0.9% 10 Ml Sdv) 10 ml IV ASDIRECTED PRN PRN Reason: IV Use Sterile Water (Water For Irrigation,Sterile 1,000 Ml Container) 1,000 ml IRR ASDIRECTED PRN PRN Reason: delivery Terbutaline Sulfate (Terbutaline 1 Mg/Ml Sdv) 0.25 mg SUBCUT ASDIRECTED PRN PRN Reason: Tacysystole Witch Paula (Witch Paula Medicated Pads 40/Jar) 1 pad TOP ASDIRECTED PRN PRN Reason: comfort care Last Admin: 02/03/21 19:49 Dose: 1 tub Documented by: Discontinued Medications Bupivacaine HCl (Bupivacaine 0.25% 10 Ml Sdv) Confirm Administered Dose 10 ml .ROUTE .STK-MED ONE Stop: 02/03/21 11:32 Last Admin: 02/03/21 21:41 Dose: Not Given Documented by: Ropivacaine (Naropin 0.2%) Confirm Administered Dose 200 mls @ as directed .ROUTE .STK-MED ONE Stop: 02/03/21 11:32 Last Admin: 02/03/21 21:41 Dose: Not Given Documented by: - Exam General: Reports: Alert, Oriented Lungs: Reports: Normal Respiratory Effort Cardiovascular: Reports: Regular Rate Extremities: Normal Inspection Psy/Mental Status: Reports: Alert, Normal Affect, Normal Mood
--- NOTE | 2021-02-04 12:36 | PCM.POSTAN ---
POST ANESTHESIA ASSESSMENT - MENTAL STATUS Mental Status: Alert, Oriented - VITAL SIGNS Vital Signs: Last Vital Signs Temp 96.8 F L 02/04/21 08:00 Pulse 80 02/04/21 08:00 Resp 18 02/04/21 08:00 BP 108/52 L 02/04/21 08:00 Pulse Ox 98 02/04/21 08:00 - RESPIRATORY Respiratory Status: Respiratory Rate WNL, Airway Patent, O2 Saturation Stable - CARDIOVASCULAR CV Status: Pulse Rate WNL, Blood Pressure Stable - GASTROINTESTINAL GI Status: No Symptoms - POST OP HYDRATION Hydration Status: Adequate & Stable
--- NOTE | 2021-02-04 12:37 | PCM48HPAN ---
Post Anesthesia Note - EVALUATION WITHIN 48HRS OF ANESTHETIC Vital Signs in Normal Range: Yes Patient Participated in Evaluation: Yes Respiratory Function Stable: Yes Airway Patent: Yes Cardiovascular Function Stable: Yes Hydration Status Stable: Yes Pain Control Satisfactory: Yes Nausea and Vomiting Control Satisfactory: Yes Mental Status Recovered: Yes Vital Signs: Last Vital Signs Temp 96.8 F L 02/04/21 08:00 Pulse 80 02/04/21 08:00 Resp 18 02/04/21 08:00 BP 108/52 L 02/04/21 08:00 Pulse Ox 98 02/04/21 08:00
[2021-02-04 16:13] VITALS: BP 128/73; PULSE 84
[2021-02-04] MEDS: Witch Hazel Medicated Pads 40/Jar TOP PRN (18:23)
[2021-02-04] MEDS: Benzocaine/Menthol 20%-0.5% Spray 78 GM Cannister TOP PRN (18:23)
== END 2021-02-04 18:45 | disposition home or self-care (01) | DRG 807 ==
LOC: MW.OBCHECK 02:16 → MW.OB 02:19 → MW.OBCHECK 03:39 → MW.OB 03:39 → OBSVTOIN 16:31 → MW.OB 21:42
PROVIDERS: ADMIT Obstetrics & Gynecology Obstetrics; ATTEND Obstetrics & Gynecology Obstetrics
PROC: 10E0XZZ Delivery of Products of Conception, External Approach (ICD-10-PCS; principal; 2021-02-03)
PROC: 10907ZC Drainage of Amniotic Fluid, Therapeutic from Products of Conception, Via Natural or Artificial Opening (ICD-10-PCS; 2021-02-03)
PROC: 0HQ9XZZ Repair Perineum Skin, External Approach (ICD-10-PCS; 2021-02-03)
DX: O99.334 Smoking (tobacco) complicating childbirth (principal); Z37.0 Single live birth; F17.210 Nicotine dependence, cigarettes, uncomplicated; O99.214 Obesity complicating childbirth; E66.9 Obesity, unspecified; O70.0 First degree perineal laceration during delivery; O69.1XX0 Labor and delivery complicated by cord around neck, with compression, not applicable or unspecified; Z20.822 Contact with and (suspected) exposure to COVID-19; Z3A.37 37 weeks gestation of pregnancy; Z88.8 Allergy status to other drugs, medicaments and biological substances
CPT/HCPCS: 01967; 36415; 51702; 59025; 59409; 85014; 85018; 85027; 86592; 86850; 86900; 86901; A9270-GY; J0595; J2405; J2590; J7120; U0002

== ENCOUNTER 2021-03-25 17:51 | Emergency (ER) | payer MEDICAID ==
[2021-03-25] MEDS ORDERED: Morphine 4 MG/ML Syringe IVPUSH ONE (18:17)
[2021-03-25] MEDS ORDERED: Lactated Ringers 1,000 ML IV SCH (18:30)
[2021-03-25 18:59] LABS: BLOOD UREA NITROGEN,BUN 7 mg/dL (7.0-18.0); CARBON DIOXIDE,CO2 26.1 mmol/L (21.0-32.0); CHLORIDE,CL 103 mmol/L (98-107); GLUCOSE RANDOM 114 mg/dL (74-106); LIPASE 740 U/L (73-393); POTASSIUM,K 3.6 mmol/L (3.5-5.1); SODIUM,NA 138 mmol/L (136-145)
--- NOTE | 2021-03-25 19:40 | EDM.PDOC ---
<Darryl Gardner - Last Filed: 03/25/21 19:39> ED HPI GENERAL MEDICAL PROBLEM - General Chief Complaint: Abdominal Pain Stated Complaint: PAIN AROUND STOMACH TO BACK Time Seen by Provider: 03/25/21 18:00 - History of Present Illness INITIAL COMMENTS - FREE TEXT/NARRATIVE: CHIEF COMPLAINT(S): Abdominal pain HISTORY OF PRESENT ILLNESS: This is a 20-year-old woman with a recent spontaneous vaginal delivery in January 2021 who comes to the emergency department with a chief complaint of abdominal pain. The patient states that over the last 2 days she has been experiencing increased abdominal pain in the lower quadrants which begins in the lower pelvic region which radiates to her lower back. She denies any vaginal bleeding, vaginal discharge, dysuria, hematuria. She states that she is concerned its her gallstones because she has had gallstones during her and this is where the pain was. She describes the pain as sharp and shooting rated 10 out of 10 associate with diarrhea. There is no nausea or vomiting. She denies any aggravating factors or relieving factors. She states that she has not had a good appetite but has been able to tolerate p.o. REVIEW OF SYSTEMS: Constitutional: Denies fever, chills. Eyes: Denies eye pain Ears, Nose, Mouth, & Throat: Denies earache Cardiovascular: Denies chest pain Respiratory: Denies shortness of breath Gastrointestinal: Positive for bilateral lower quadrant abdominal pain and diarrhea. Denies nausea, vomiting, medic easier, hematemesis, bilious emesis, melena Genitourinary: Denies hematuria, dysuria, vaginal bleeding, vaginal discharge Skin:Denies a rash MSK: Positive for lower back pain Neurological: Denies blurred vision Psychiatric: Denies depression PAST MEDICAL HISTORY: As per history of present illness and as reviewed below otherwise noncontributory. SURGICAL HISTORY: As per history of present illness and as reviewed below otherwise noncontributory. LMP: 2 weeks ago SOCIAL HISTORY: As per history of present illness and as reviewed below otherwise noncontributory. FAMILY HISTORY: As per history of present illness and as reviewed below otherwise noncontributory. EXAMINATION OF ORGAN SYSTEMS/BODY AREAS: Constitutional: Blood pressure is 104/59, heart rate 96, respiratory rate 18 with an oxygen saturation 96% on room air. Temperature 36.1 General: Young woman who does not appear to be in acute distress Psychiatric: Appropriate mood and affect. Eyes: No scleral icterus or conjunctival erythema ENMT: Moist mucous membranes. No pharyngeal erythema Cardiovascular: Regular, rate, and rhythm. No gallops, murmurs, or rubs. Bilateral upper extremity pulses symmetric and intact. No peripheral edema. No JVD. Respiratory: Lungs clear to auscultation bilaterally. No wheezes, rales, or rhonchi. Gastrointestinal: Soft, nondistended, tenderness to palpation in the left upper quadrant, right upper quadrant, right lower quadrant, left lower quadrant, suprapubic region, mid epigastrium, and periumbilical area. No rebound or guarding. Normoactive bowel sounds Genitourinary: Suprapubic tenderness is present. No CVA tenderness Musculoskeletal: Normal range of motion. Skin: No lesions or abrasions. Neurological: Alert, GCS 15 MEDICAL DECISION MAKING AND COURSE IN THE ED WITH INTERPRETATION/REVIEW OF DIAGNOSTIC STUDIES: This is a 20-year-old woman with a past medical history of cholelithiasis and recent vaginal delivery approximately 1.5 months ago who comes to the emergency department with diffuse abdominal pain associated with diarrhea with normal vital signs. At this time it is uncertain as to what is causing the patient's symptoms therefore we will obtain laboratory analysis including CBC, CMP, lipase, urinalysis and hCG. We will provide the patient with morphine and 1 L of lactated Ringer's bolus. Differential is broad and includes cholelithiasis, nephrolithiasis, cystitis, pyelonephritis, gastroenteritis. Patient was signed out to oncoming night team physician pending laboratory analysis and CT abdomen pelvis and final disposition. DISPOSITION: Patient was signed out oncoming night physician pending further work-up and disposition CONDITION: Fair PROCEDURES: None FINAL IMPRESSION(S)/DIAGNOSES: 1. Acute abdominal pain 2. Acute diarrhea Darryl Gardner M.D. lower abdomen Pain Score (Numeric/FACES): 7 - Related Data Allergies Allergy/AdvReac Type Severity Reaction Status Date / Time lamotrigine [From Lamictal] Allergy Intermediate Rash Verified 03/25/21 18:11 Home Meds: Home Meds . [No Known Home Meds] 01/01/21 [History] Past Medical History - Past Health History Medical/Surgical History: Denies Medical/Surgical History HEENT History: Reports: Impaired Vision Cardiovascular History: Reports: None Respiratory History: Reports: Asthma Gastrointestinal History: Reports: Cholelithiasis Genitourinary History: Reports: None CLAIM ANALYST History: Reports: Musculoskeletal History: Reports: None Neurological History: Reports: None Psychiatric History: Reports: Anxiety, Depression, PTSD Endocrine/Metabolic History: Reports: Obesity/BMI 30+ Hematologic History: Reports: None Immunologic History: Reports: None Oncologic (Cancer) History: Reports: None Dermatologic History: Reports: None - Infectious Disease History Infectious Disease History: Reports: None - Past Surgical History Head Surgeries/Procedures: Reports: None HEENT Surgical History: Reports: Adenoidectomy, Oral Surgery, Tonsillectomy Cardiovascular Surgical History: Reports: None Respiratory Surgical History: Reports: None GI Surgical History: Reports: None Female Surgical History: Reports: None Endocrine Surgical History: Reports: None Neurological Surgical History: Reports: None Musculoskeletal Surgical History: Reports: None Oncologic Surgical History: Reports: None Dermatological Surgical History: Reports: None Social & Family History - Family History Family Medical History: No Pertinent Family History OBGYN: Reports: Psychiatric: Reports: Anxiety, Bipolar, Depression Other Endocrine/Metabolic Family History: thyroid disease - Tobacco Use Tobacco Use Status *Q: Current Every Day Tobacco User Years of Tobacco use: 5 Packs/Tins Daily: 2 - Caffeine Use Caffeine Use: Reports: Soda Other Caffeine Use: occasional - Recreational Drug Use Recreational Drug Use: Yes Recreational Drug Type: Reports: Marijuana/Hashish - Living Situation & Occupation Living situation: Reports: Single, with Significant Other (Boyfriend) Occupation: Unemployed ED ROS GENERAL - Review of Systems Review Of Systems: See Below ED EXAM, GENERAL - Physical Exam Exam: See Below Departure - Departure Disposition: Against Medical Advice 07 Clinical Impression: Abdominal pain - Discharge Information Instructions: Abdominal Pain, Adult, [id number] Referrals: Crista Sheth MD [Primary Care Provider] - Forms: ED Department Discharge Sepsis Event Note (ED) - Evaluation Sepsis Screening Result: No Definite Risk <Kael Peters - Last Filed: 03/27/21 21:27> ED HPI GENERAL MEDICAL PROBLEM - History of Present Illness INITIAL COMMENTS - FREE TEXT/NARRATIVE: March 27, 2021 9:21 PM: Signout received at 7 PM. This is a 89-year-old who presents to the ER today complaining of diffuse abdominal pain. Patient does have a history significant for gallstones in the past. Patient had a CT scan of her abdomen pelvis which revealed numerous gallstones. The liver, spleen, pancreas, adrenals and kidneys are all normal. No intrahepatic biliary ductal dilatation was identified. There is no hydronephrosis identified. There is no renal calculi identified. Both kidneys enhance normally. There was fullness identified within both ovaries which may be related to multiple peripheral follicles. This can be further evaluated ultrasound of the pelvis if indicated. There is no evidence of appendicitis. Patient was reevaluated by me. Abd: Soft, nondistended, no rebound/guarding, no psoas or obturator signs, no tenderness at Mcberney's point, no Renae's sign. Pt does not present with an exam that would be consistent with an acute surgical abdomen at this time. Patient had mild tenderness diffusely in her upper and lower abdomen on both the left and right side. Patient reports that she did feel better while in the ED. I have discussed the CT report with her and discussed with her the findings of the gallstones as well as a fullness in both ovaries. Given her diffuse abdominal discomfort and her history of gallstones I discussed with her the need to obtain an ultrasound of her gallbladder as well as a pelvic ultrasound to rule out torsion as an atypical presentation. While I was assisting another patient, RN reported to me that the patient was unable to stay in the emergency department any further because her son was at home waiting for her and that she did not wish to wait any longer here and not wish to have the ultrasound studies that were ordered performed. The patient was instructed by the nurse that she would need to sign out AGAINST MEDICAL ADVICE. The patient left the ED prior to me being able to have a discussion with her regarding all the risks and benefits however the nurse have discussed with her return to the ED if she should change her mind. instrument room technician was notified and tests were canceled. Course - Vital Signs Last Recorded V/S: Last Vital Signs Temp 98.0 F 03/25/21 22:00 Pulse 77 03/25/21 22:00 Resp 18 03/25/21 22:00 BP 101/71 03/25/21 22:00 Pulse Ox 97 03/25/21 22:00 - Orders/Labs/Meds Labs: Laboratory Tests 0803/25/21 03/25/21 Range/Units 18:02 18:30 18:30 WBC 7.85 (4.0-11.0) K/uL RBC 4.00 L (4.30-5.90) M/uL Hgb 12.2 (12.0-16.0) g/dL Hct 35.5 L (36.0-46.0) % MCV 88.8 (80.0-98.0) fL MCH 30.5 (27.0-32.0) pg MCHC 34.4 (31.0-37.0) g/dL RDW Std Deviation 43.3 (28.0-62.0) fl RDW Coeff of Veronica 13 (11.0-15.0) % Plt Count 247 (150-400) K/uL MPV 10.80 (7.40-12.00) fL Neut % (Auto) 68.9 (48.0-80.0) % Lymph % (Auto) 21.3 (16.0-40.0) % Preston % (Auto) 7.9 (0.0-15.0) % Eos % (Auto) 1.8 (0.0-7.0) % Baso % (Auto) 0.1 (0.0-1.5) % Neut # (Auto) 5.4 (1.4-5.7) K/uL Lymph # (Auto) 1.7 (0.6-2.4) K/uL Preston # (Auto) 0.6 (0.0-0.8) K/uL Eos # (Auto) 0.1 (0.0-0.7) K/uL Baso # (Auto) 0.0 (0.0-0.1) K/uL Nucleated RBC % 0.0 /100WBC Nucleated RBCs # 0 K/uL Sodium (136-145) mmol/L Potassium (3.5-5.1) mmol/L Chloride (98-107) mmol/L Carbon Dioxide (21.0-32.0) mmol/L BUN (7.0-18.0) mg/dL Creatinine (0.6-1.0) mg/dL Est Cr Clr Drug Dosing mL/min Estimated GFR (MDRD) ml/min Glucose (74-106) mg/dL Calcium (8.5-10.1) mg/dL Total Bilirubin (0.2-1.0) mg/dL AST (15-37) IU/L ALT (14-63) IU/L Alkaline Phosphatase (46-116) U/L Total Protein (6.4-8.2) g/dL Albumin (3.4-5.0) g/dL Globulin (2.6-4.0) g/dL Albumin/Globulin Ratio (0.9-1.6) Lipase (73-393) U/L HCG, Qual NEGATIVE (NEG) Urine Color YELLOW Urine Appearance SLT CLOUDY Urine pH 6.0 (5.0-8.0) Ur Specific [place] 1.025 (1.001-1.035) Urine Protein TRACE H (NEGATIVE) mg/dL Urine Glucose (UA) NEGATIVE (NEGATIVE) mg/dL Urine Ketones TRACE H (NEGATIVE) mg/dL Urine Occult Blood NEGATIVE (NEGATIVE) Urine Nitrite NEGATIVE (NEGATIVE) Urine Bilirubin SMALL H (NEGATIVE) Urine Ictotest NEGATIVE Urine Urobilinogen 0.2 (<2.0) EU/dL Ur Leukocyte Esterase TRACE H (NEGATIVE) Urine RBC 0-2 (0-2/HPF) Urine WBC 25-30 (0-5/HPF) Ur Epithelial Cells MANY (NONE-FEW) Urine Bacteria 1+ H (NEGATIVE) Urine Mucus LIGHT (NONE-MOD) 03/25/21 Range/Units 18:30 WBC (4.0-11.0) K/uL RBC (4.30-5.90) M/uL Hgb (12.0-16.0) g/dL Hct (36.0-46.0) % MCV (80.0-98.0) fL MCH (27.0-32.0) pg MCHC (31.0-37.0) g/dL RDW Std Deviation (28.0-62.0) fl RDW Coeff of Veronica (11.0-15.0) % Plt Count (150-400) K/uL MPV (7.40-12.00) fL Neut % (Auto) (48.0-80.0) % Lymph % (Auto) (16.0-40.0) % Preston % (Auto) (0.0-15.0) % Eos % (Auto) (0.0-7.0) % Baso % (Auto) (0.0-1.5) % Neut # (Auto) (1.4-5.7) K/uL Lymph # (Auto) (0.6-2.4) K/uL Preston # (Auto) (0.0-0.8) K/uL Eos # (Auto) (0.0-0.7) K/uL Baso # (Auto) (0.0-0.1) K/uL Nucleated RBC % /100WBC Nucleated RBCs # K/uL Sodium 138 (136-145) mmol/L Potassium 3.6 (3.5-5.1) mmol/L Chloride 103 (98-107) mmol/L Carbon Dioxide 26.1 (21.0-32.0) mmol/L BUN 7 (7.0-18.0) mg/dL Creatinine 0.9 (0.6-1.0) mg/dL Est Cr Clr Drug Dosing 94.12 mL/min Estimated GFR (MDRD) > 60.0 ml/min Glucose 114 H (74-106) mg/dL Calcium 8.4 L (8.5-10.1) mg/dL Total Bilirubin 0.9 (0.2-1.0) mg/dL AST 25 (15-37) IU/L ALT 50 (14-63) IU/L Alkaline Phosphatase 87 (46-116) U/L Total Protein 6.5 (6.4-8.2) g/dL Albumin 3.5 (3.4-5.0) g/dL Globulin 3.0 (2.6-4.0) g/dL Albumin/Globulin Ratio 1.2 (0.9-1.6) Lipase 740 H (73-393) U/L HCG, Qual (NEG) Urine Color Urine Appearance Urine pH (5.0-8.0) Ur Specific [place] (1.001-1.035) Urine Protein (NEGATIVE) mg/dL Urine Glucose (UA) (NEGATIVE) mg/dL Urine Ketones (NEGATIVE) mg/dL Urine Occult Blood (NEGATIVE) Urine Nitrite (NEGATIVE) Urine Bilirubin (NEGATIVE) Urine Ictotest Urine Urobilinogen (<2.0) EU/dL Ur Leukocyte Esterase (NEGATIVE) Urine RBC (0-2/HPF) Urine WBC (0-5/HPF) Ur Epithelial Cells (NONE-FEW) Urine Bacteria (NEGATIVE) Urine Mucus (NONE-MOD) Meds: Medications Discontinued Medications Generic Name Dose Route Start Last Admin Trade Name Brittany PRN Reason Stop Dose Admin Lactated Ringer's 1,000 mls @ 999 mls/hr 03/25/21 18:30 03/25/21 18:29 Ringers, Lactated IV 999 mls/hr ASDIRECTED DAREN Administration Iopamidol 100 ml 03/25/21 20:00 03/25/21 20:01 Iopamidol 755 Mg/Ml 500 Ml Multipack Bottle IVPUSH 03/25/21 20:01 100 ml ONETIME STA Administration Ketorolac Tromethamine 15 mg 03/25/21 21:50 Ketorolac 15 Mg/Ml Sdv IVPUSH 03/25/21 21:51 Q6H STA Morphine Sulfate 4 mg 03/25/21 18:17 03/25/21 18:29 Morphine 4 Mg/Ml Syringe IVPUSH 03/25/21 18:18 4 mg ONETIME ONE Administration Departure - Departure Time of Disposition: 22:00
[2021-03-25] MEDS ORDERED: Iopamidol 755 MG/ML 500 ML Multipack Bottle IVPUSH STA (20:00)
--- NOTE | 2021-03-25 20:33 | CT ---
Indication: Diffuse abdominal pain, worse in the lower quadrants. Technique: Multiple contiguous axial images were obtained from the lung bases through the symphysis pubis after the intravenous administration of 100 milliliters Isovue 370. Please note that all CT scans at this facility use dose modulation, iterative reconstruction, and/or weight-based dosing when appropriate to reduce radiation dose to as low as reasonably achievable. Comparison: None Findings: The heart is normal in size. No pericardial effusions identified. Mild left basilar atelectasis is identified. No infiltrate, pleural effusion, or pneumothorax is identified. Numerous gallstones are identified. The liver, spleen, pancreas, adrenals, and kidneys are normal. No intrahepatic biliary ductal dilatation is identified. No hydronephrosis is identified. No renal calculi are identified. Both kidneys enhance symmetrically. In the pelvis, the urinary bladder is normal. Fluid is identified within the endometrial canal. Both ovaries have a full appearance. Consideration should be given to ultrasound of the pelvis. The small and large bowel are normal in caliber. I believe I see appendix, no inflammatory changes are identified within the right lower quadrant. No free air or free fluid is identified within the abdomen or pelvis. Moderate amount of stool is identified within the colon. The aorta is normal in caliber. No lytic or blastic lesions of the spine are identified. Impression: Fullness identified within both ovaries, which may be related to multiple peripheral follicles. This can be further evaluated with an ultrasound of the pelvis if clinically indicated No definitive evidence of appendicitis. Please note that all CT scans at this facility use dose modulation, iterative reconstruction, and/or weight-based dosing when appropriate to reduce radiation dose to as low as reasonably achievable. Dictated by Alejandra Weston MD @ 03/25/2021 8:33:[address] Alejandra Weston @ Mar 25 2021 8:33PM
[2021-03-25] MEDS ORDERED: Ketorolac 15 MG/ML SDV IVPUSH STA (21:50)
[2021-03-25 22:01] VITALS: BP 101/71; PULSE 77
== END 2021-03-25 22:01 | disposition left against medical advice (07) ==
LOC: MW.ED 17:51
DX: R10.31 Right lower quadrant pain (principal); R10.32 Left lower quadrant pain; R10.815 Periumbilic abdominal tenderness; R10.816 Epigastric abdominal tenderness; R10.812 Left upper quadrant abdominal tenderness; R10.811 Right upper quadrant abdominal tenderness; R19.7 Diarrhea, unspecified; Z88.8 Allergy status to other drugs, medicaments and biological substances; Z72.0 Tobacco use
CPT/HCPCS: 36415; 74177; 80053; 81001; 83690; 84703; 85025; 96374; 99284; J2270; J7120; Q9967

== ENCOUNTER 2021-04-09 16:30 | Emergency (ER) | payer MEDICAID | END 2021-04-09 19:01 | disposition left against medical advice (07) | LOC: MW.ED 16:30 | DX: Z53.21 Procedure and treatment not carried out due to patient leaving prior to being seen by health care provider (principal) ==

== ENCOUNTER 2021-04-10 00:37 | Emergency (ER) | payer MEDICAID ==
[2021-04-10] MEDS ORDERED: Albuterol 8 GM Inhaler INH ONE (00:58)
--- NOTE | 2021-04-10 00:59 | EDM.PDOC ---
ED HPI GENERAL MEDICAL PROBLEM - General Chief Complaint: General Stated Complaint: COVID SYMPTOMS Time Seen by Provider: 04/10/21 00:41 - History of Present Illness INITIAL COMMENTS - FREE TEXT/NARRATIVE: 20-year-old female no significant past medical history is presenting with an illness that started 4 days ago with stuffy nose and is progressed over the last 24 to 36 hours with worsening sore throat nonproductive cough body aches headache malaise and shortness of breath worsens when she lays flat. No other sick contacts no neck stiffness no vomiting no abdominal pain or diarrhea. Patient took NyQuil and Mucinex DM with some improvement in her symptoms tonight. She presents concerned about the potential for Covid as she has a 2-month-old child at home. - Related Data Allergies Allergy/AdvReac Type Severity Reaction Status Date / Time lamotrigine [From Lamictal] Allergy Intermediate Rash Verified 03/25/21 18:11 Home Meds: Home Meds Benzonatate [Tessalon Perle] 100 mg PO TID PRN 5 Days #15 capsule 04/10/21 [Rx] Past Medical History - Past Health History Medical/Surgical History: Denies Medical/Surgical History HEENT History: Reports: Impaired Vision Cardiovascular History: Reports: None Respiratory History: Reports: Asthma Gastrointestinal History: Reports: Cholelithiasis Genitourinary History: Reports: None MEDIA ASSOCIATE History: Reports: Musculoskeletal History: Reports: None Neurological History: Reports: None Psychiatric History: Reports: Anxiety, Depression, PTSD Endocrine/Metabolic History: Reports: Obesity/BMI 30+ Hematologic History: Reports: None Immunologic History: Reports: None Oncologic (Cancer) History: Reports: None Dermatologic History: Reports: None - Infectious Disease History Infectious Disease History: Reports: None - Past Surgical History Head Surgeries/Procedures: Reports: None HEENT Surgical History: Reports: Adenoidectomy, Oral Surgery, Tonsillectomy Cardiovascular Surgical History: Reports: None Respiratory Surgical History: Reports: None GI Surgical History: Reports: None Female Surgical History: Reports: None Endocrine Surgical History: Reports: None Neurological Surgical History: Reports: None Musculoskeletal Surgical History: Reports: None Oncologic Surgical History: Reports: None Dermatological Surgical History: Reports: None Social & Family History - Family History Family Medical History: No Pertinent Family History OBGYN: Reports: Psychiatric: Reports: Anxiety, Bipolar, Depression Other Endocrine/Metabolic Family History: thyroid disease - Caffeine Use Caffeine Use: Reports: None Other Caffeine Use: occasional - Recreational Drug Use Recreational Drug Use: Yes Drug Use in Last 12 Months: Yes Recreational Drug Type: Reports: Marijuana/Hashish - Living Situation & Occupation Living situation: Reports: Single, with Significant Other (Boyfriend) Occupation: Unemployed ED ROS GENERAL - Review of Systems Review Of Systems: See Below Free Text/Narrative/Comment: General: Per HPI Skin: No rash. Eyes: No vision problems. ENT: Per HPI Neck: No neck stiffness. Respiratory: Per HPI Cardiac: No chest pain. Gastrointestinal: No nausea, vomiting or abdominal pain. Musculoskeletal: Per HPI Neurologic: Per HPI ED EXAM, GENERAL - Physical Exam Exam: See Below Free Text/Narrative:: General Appearance: No acute distress, appears comfortable Skin: No rash HEENT: Normocephalic/atraumatic, sclera anicteric, mucous membranes moist, mild posterior oropharyngeal erythema uvula midline no peritonsillar or tonsillar exudate or swelling no submental or sublingual swelling no trismus Neck: Normal range of motion Chest and Lungs: Scant diffuse wheezing with coughing lungs otherwise clear Cardiovascular: Minimally tachycardic rate regular rhythm intact distal perfusion Musculoskeletal: No edema or tenderness Neurologic: Awake, alert, no obvious deficits, moving all extremities Psychiatric: Appropriate, cooperative Course - Vital Signs Last Recorded V/S: Last Vital Signs Temp 97 F 04/10/21 00:51 Pulse 111 H 04/10/21 00:51 Resp 20 04/10/21 00:51 BP 113/71 04/10/21 00:51 Pulse Ox 95 04/10/21 00:51 - Orders/Labs/Meds Orders: Active Orders 24 hr Category Date Time Status dexAMETHasone [Decadron] Med 04/10/21 02:01 Once 10 mg IVPUSH ONETIME ONE Labs: Laboratory Tests 04/10/21 Range/Units 01:00 SARS-CoV-2 RNA (PETR) NEGATIVE (NEGATIVE) Meds: Medications Discontinued Medications Generic Name Dose Route Start Last Admin Trade Name Freq PRN Reason Stop Dose Admin Albuterol Confirm 04/10/21 00:58 Albuterol 8 Gm Inhaler Administered 04/10/21 00:59 Dose 8 gm INH .STK-MED ONE Departure - Departure Time of Disposition: 02:03 Disposition: Home, Self-Care 01 Condition: Good Clinical Impression: Viral URI with cough - Discharge Information *PRESCRIPTION DRUG MONITORING PROGRAM REVIEWED*: Not Applicable *COPY OF PRESCRIPTION DRUG MONITORING REPORT IN PATIENT HARISH: Not Applicable Prescriptions: Benzonatate [Tessalon Perle] 100 mg PO TID PRN 5 Days #15 capsule PRN Reason: Cough Instructions: Upper Respiratory Infection, Adult, [id number] Referrals: Crista Sheth MD [Primary Care Provider] - Forms: ED Department Discharge Additional Instructions: Your chest X-ray did not show any pneumonia and your COVID swab was negative. Your symptoms are most likely due to another type of viral upper respiratory infection. You can take 2 puffs of the albuterol up to every 4-6 hours to help with your breathing. The Decadron that you got is a steroid that will stay in your system for 36 to 48 hours and should help you through the worst of the illness. If your symptoms worsen or you have any other symptoms that concern you please call your doctor or return to the ER The following information is given to patients seen in the emergency department who are being discharged to home. This information is to outline your options for follow-up care. We provide all patients seen in our emergency department with a follow-up referral. The need for follow-up, as well as the timing and circumstances, are variable depending upon the specifics of your emergency department visit. If you don't have a primary care physician on staff, we will provide you with a referral. We always advise you to contact your personal physician following an emergency department visit to inform them of the circumstance of the visit and for follow-up with them and/or the need for any referrals to a consulting specialist. The emergency department will also refer you to a specialist when appropriate. This referral assures that you have the opportunity for follow-up care with a specialist. All of these measure are taken in an effort to provide you with optimal care, which includes your follow-up. Under all circumstances we always encourage you to contact your private physician who remains a resource for coordinating your care. When calling for follow-up care, please make the office aware that this follow-up is from your recent emergency room visit. If for any reason you are refused follow-up, please contact the [facility] Emergency Department at and asked to speak to the emergency department charge nurse. Sepsis Event Note (ED) - Evaluation Sepsis Screening Result: No Definite Risk - Focused Exam Vital Signs: Vital Signs Temp Pulse Resp BP Pulse Ox 04/10/21 00:51 97 F 111 H 20 113/71 95 - My Orders Last 24 Hours: My Active Orders 04/10/21 02:01 dexAMETHasone [Decadron] 10 mg IVPUSH ONETIME ONE - Assessment/Plan Last 24 Hours: My Active Orders 04/10/21 02:01 dexAMETHasone [Decadron] 10 mg IVPUSH ONETIME ONE Assessment:: 20-year-old female presenting with signs and symptoms as noted above I would be concerned about pneumonia Covid or other viral upper respiratory infection. Given patient's wheezing with coughing and her shortness of breath 2 puffs of an albuterol inhaler will be provided. If she has a pneumonia on her x-ray then obviously she would need antibiotics. Covid would also explain her symptoms. If these are negative and I think Decadron would be reasonable to try for symptomatic treatment. Could also add Tessalon Perles. Patient's vital signs are good her work of breathing is normal she is satting well on room air. I martin ve no concern for meningitis or encephalitis. CXR is negative and COVID is negative. Likely a noncovid viral infection. Decadron given along with albuterol and Rx for Tessalon Perles. Pt felt stable for dc. normal WOB, good VS.
--- NOTE | 2021-04-10 01:44 | CR ---
INDICATION: Cough, shortness of breath TECHNIQUE: Chest radiograph 1 view COMPARISON: None FINDINGS: The sensitivity and specificity of the exam are moderately limited by the patient`s body habitus. Mediastinum: The mediastinum is normal in appearance. The heart silhouette is normal in size and morphology. Lung: Both lungs are unremarkable in appearance. No sign of pleural effusion seen. No pneumothorax is identified. Bone and Soft tissue: Unremarkable for age. IMPRESSION: 1. No acute cardiopulmonary disease is seen. Dictated by: Jose Enrique Will MD @ 04/10/2021 01:44:16 (Electronically Signed)
[2021-04-10] MEDS ORDERED: Dexamethasone 10 MG/ML SDV IVPUSH ONE (02:01)
[2021-04-10 02:19] VITALS: BP 128/81; PULSE 105
== END 2021-04-10 02:18 | disposition home or self-care (01) ==
LOC: MW.ED 00:37
DX: J06.9 Acute upper respiratory infection, unspecified (principal); E66.9 Obesity, unspecified; Z68.37 Body mass index [BMI] 37.0-37.9, adult; Z88.8 Allergy status to other drugs, medicaments and biological substances; Z20.822 Contact with and (suspected) exposure to COVID-19
CPT/HCPCS: 71045; 87635; 99283; A9270; J1100; U0002

== ENCOUNTER 2022-01-06 10:08 | Emergency (ER) | payer MEDICAID ==
[2022-01-06 11:41] LABS: CORONAVIRUS COVID-19 NAA NEGATIVE (NEGATIVE); INFLUENZA A NAA NEGATIVE (NEGATIVE); INFLUENZA B NAA NEGATIVE (NEGATIVE)
[2022-01-06] MEDS ORDERED: Albuterol 8 GM Inhaler INH ONE (12:02)
[2022-01-06 12:52] VITALS: BP 131/78; PULSE 82
== END 2022-01-06 12:53 | disposition home or self-care (01) ==
LOC: MW.ED 10:08
DX: J06.9 Acute upper respiratory infection, unspecified (principal); B34.9 Viral infection, unspecified; E66.9 Obesity, unspecified; Z68.32 Body mass index [BMI] 32.0-32.9, adult; Z20.822 Contact with and (suspected) exposure to COVID-19; Z79.899 Other long term (current) drug therapy; Z88.8 Allergy status to other drugs, medicaments and biological substances
CPT/HCPCS: 0240U; 71045; 87651; 99284; A9270; 99283

== ENCOUNTER 2022-01-10 23:31 | Emergency (ER) | payer MEDICAID ==
[2022-01-10] MEDS ORDERED: Albuterol 8 GM Inhaler INH ONE (23:54)
[2022-01-11 00:25] VITALS: BP 109/64; PULSE 88
== END 2022-01-11 00:26 | disposition home or self-care (01) ==
LOC: MW.ED 23:31
DX: J06.9 Acute upper respiratory infection, unspecified (principal); E66.9 Obesity, unspecified; Z68.31 Body mass index [BMI] 31.0-31.9, adult; Z88.8 Allergy status to other drugs, medicaments and biological substances
CPT/HCPCS: 99283; A9270

== ENCOUNTER 2024-09-05 11:54 | Emergency (ER) | payer MEDICAID ==
[2024-09-05 13:19] LABS: APPEARANCE,URINE CLEAR; BILIRUBIN,URINE NEGATIVE (NEGATIVE); COLOR,URINE YELLOW; GLUCOSE,URINE NEGATIVE (NEGATIVE); KETONES,URINE NEGATIVE (NEGATIVE); LEUKOCYTE ESTERASE,URINE NEGATIVE (NEGATIVE); NITRITE,URINE NEGATIVE (NEGATIVE); OCCULT BLOOD,URINE NEGATIVE (NEGATIVE); PROTEIN,URINE NEGATIVE (NEGATIVE); UROBILINOGEN,URINE 0.2 EU/dL (<2.0)
[2024-09-05 13:24] LABS: BASOPHILS ABSOLUTE AUTO 0.02 K/uL (0.00-0.20); BASOPHILS PERCENT AUTO 0.5 % (0.0-1.0); EOSINOPHILS ABSOLUTE AUTO 0.01 K/uL (0.00-0.45); EOSINOPHILS PERCENT AUTO 0.2 % (0.0-6.0); HEMATOCRIT 36.8 % (37.0-47.0); HEMOGLOBIN 13.2 g/dL (12.0-16.0); IMMATURE GRAN ABSOLUTE AUTO 0.03 K/uL (0.00-0.05); IMMATURE GRAN PERCENT AUTO 0.7 % (0.0-0.4); LYMPHOCYTES ABSOLUTE AUTO 0.77 K/uL (1.00-4.80); LYMPHOCYTES PERCENT AUTO 17.6 % (24.0-44.0); MEAN CORPUSCULAR HEMOGLOBIN 32.2 pg (28.0-32.0); MEAN CORPUSCULAR HGB CONC 35.9 g/dL (32.0-36.0); MEAN CORPUSCULAR VOLUME 89.8 fL (83.0-99.0); MEAN PLATELET VOLUME 10.2 fL (9.4-12.3); MONOCYTES ABSOLUTE AUTO 0.73 K/uL (0.00-0.80); MONOCYTES PERCENT AUTO 16.7 % (0.0-8.0); NEUTROPHILS ABSOLUTE AUTO 2.81 K/uL (1.80-7.70); NEUTROPHILS PERCENT AUTO 64.3 % (41.0-71.0); PLATELET COUNT,PLT 159 K/uL (150-400); WHITE BLOOD CELL COUNT,WBC 4.37 K/uL (3.9-11.3)
[2024-09-05] MEDS: Sodium Chloride 0.9% 1,000 ML IV ONE (13:26)
[2024-09-05] MEDS: Ketorolac 30 MG/ML SDV IVPUSH ONE (13:26)
[2024-09-05 13:54] LABS: A/G RATIO 1.3 (0.9-1.6); ALANINE AMINOTRANSFERASE,ALT 28 IU/L (14-63); ALBUMIN 3.6 g/dL (3.4-5.0); ALKALINE PHOSPHATASE 47 U/L (46-116); ASPARTATE AMNIOTRANSFERASE,AST 12 IU/L (15-37); BILIRUBIN TOTAL 0.6 mg/dL (0.2-1.0); BLOOD UREA NITROGEN,BUN 5 mg/dL (7.0-18.0); CALCIUM 8.8 mg/dL (8.5-10.1); CARBON DIOXIDE,CO2 25.4 mmol/L (21.0-32.0); CHLORIDE,CL 106 mmol/L (98-107); CREATININE 0.7 mg/dL (0.6-1.0); EST CRCL DRUG DOSING (CG) 121.55 mL/min; GLUCOSE RANDOM 95 mg/dL (74-106); LIPASE 71 U/L (16-77); POTASSIUM,K 3.6 mmol/L (3.5-5.1); PROTEIN TOTAL,TP 6.4 g/dL (6.4-8.2); SODIUM,NA 143 mmol/L (136-145)
[2024-09-05 13:55] LABS: ESTIMATED GFR 125 mL/min (>60)
[2024-09-05 14:22] VITALS: BP 110/52; PULSE 80
== END 2024-09-05 14:22 | disposition home or self-care (01) ==
LOC: MW.ED 11:54
DX: J40 Bronchitis, not specified as acute or chronic (principal); E66.9 Obesity, unspecified; Z88.8 Allergy status to other drugs, medicaments and biological substances
CPT/HCPCS: 36415; 71045; 80053; 81003; 81025; 83690; 84484; 85025; 85379; 87428; 93005; 96361; 96374; 99285; J1885; J7030

== ENCOUNTER 2025-03-18 15:12 | Emergency (ER) | payer MEDICAID ==
[2025-03-18] MEDS: Diphtheria,Pertussis(Acell),Tetanus Vaccine 0.5 ML Syringe IM ONE (18:13)
[2025-03-18 18:24] VITALS: BP 127/61; PULSE 79
== END 2025-03-18 18:32 | disposition home or self-care (01) ==
LOC: MW.ED 15:12
DX: L08.89 Other specified local infections of the skin and subcutaneous tissue (principal); Z79.899 Other long term (current) drug therapy; Z75.3 Unavailability and inaccessibility of health-care facilities; Z88.8 Allergy status to other drugs, medicaments and biological substances
CPT/HCPCS: 90471; 90715; 99283; A9270

== ENCOUNTER 2025-03-19 21:16 | Emergency (ER) | payer MEDICAID | END 2025-03-19 21:47 | disposition left against medical advice (07) | LOC: MW.ED 21:16 | DX: Z53.21 Procedure and treatment not carried out due to patient leaving prior to being seen by health care provider (principal) ==